=== PATIENT | male | born 1970 | race Caucasian/White ===

== ENCOUNTER 2017-01-27 12:36 | Observation (INO) ==
--- NOTE | 2017-01-27 16:02 | Event Note ---
Date of Encounter: 01/27/17 Time of Encounter: 16:00 1. Chest pain with multiple risk factors Start aspirin, schedule a stress test for the morning Continue monitoring with telemetry, follow troponins, lipid panel in the morning Order an echocardiogram Consider cardiology consult if there are any positive findings on the stress test/nuclear stress test 2. Tobacco abuse, smoking cessation counseling given for 5 minutes. Nicotine patch will be ordered 3. COPD, uses oxygen at night, continue DuoNeb's at night 4. History of asthma, follow up with a form carpenter at [facility] Omeprazole for GI prophylaxis and Lovenox for DVT prophylaxis. The patient will be admitted for observation. Full code. Time spent on this admission 40 minutes. H&P will be completed by MOUSTAPHA Alberto
[2017-01-27] MEDS ORDERED: Ondansetron 4 MG/2 ML VIAL IVP PRN (16:14)
[2017-01-27] MEDS ORDERED: Naloxone 0.4 MG/ML INJ IVP PRN (16:14)
[2017-01-27] MEDS ORDERED: Acetaminophen 325 MG TABLET PO PRN (16:14)
[2017-01-27] MEDS ORDERED: Nitroglycerin 0.4 MG TAB.SUBL SL PRN (16:19)
[2017-01-27] MEDS: Nicotine 21 MG PATCH.TD24 TD SCH (16:35)
--- NOTE | 2017-01-27 16:45 | Internal Med History&Physical ---
Date of Encounter: 01/27/17 Time of Encounter: 16:26 Assessment and Plan (1) Chest wall pain Current visit: Yes Status: Acute Patient has had chronic chest pain off and on for the past 3 months has been followed by cardiology from [facility]. Today he had sudden onset of midsternal chest pain that was not relieved with any rest or oxygen. He was given 3 nitroglycerin which finally did relieve his pain first troponin is 0 we will continue to trend troponin we will get cardiology records from [facility] We will continue with aspirin we will check lipid profile continue a statin and states that he has been on beta bernadette however his blood pressure drops too low she has not been taking it; hold for now He will check echocardiogram Continuous cardiac monitoring NPO after midnight for cardiac stress test in a.m. We will consult cardiology as needed (2) COPD (chronic obstructive pulmonary disease) Current visit: No Status: Chronic 1 we will continue bronchodilators-oxygen Patient can follow up with manager of drilling at [facility] as an outpatient Qualifiers: COPD type: unspecified COPD Qualified Code(s): J44.9 - Chronic obstructive pulmonary disease, unspecified (3) DVT prophylaxis Current visit: Yes Status: [facility] Internal Medicine - H&P: HPI Chief complaint: CP Admitted From: Hospital to Hospital Transfer Plans for Post Hospital Care: Home History of present illness: Mr. Samuels is a 46 year old male with history of COPD he is on oxygen at night tobacco use and asthma. According to the patient he has been experiencing chest pain off and on for the past few months. His primary care physician referred him to see a air turning machine feeder who initiated him on aspirin as well as beta bernadette and another medication he is not sure of the name he thinks it is a blood thinner. He states he is suppose to have a cardiac cathterization Nov 2. This morning he he awoke and began to experience midsternal chest heaviness which radiated to both arms she described as sharp pain and heaviness. Normally his pain is relieved with rest and oxygen however today there was no improvement after rest or oxygen. The pain was aggravated with exertion he had associated symptoms of shortness of breath. He presented to [place] ED for evaluation. Cardiac workup in the ER was unremarkable. He was given ASA nitroglycerine x3 and relieved pain. He is hemodynamically stable. Patient requested to be transferred to [facility] however no beds were available agreed to transfer to [place]. Presently he is pain free and hemodynamically stable EKG with NO ST T wave abnormalities. I reviewed this case with Dr Christie who agrees with plan Past Med Surg Social Fam HX - Past Medical History Medical history: COPD Psychiatric history: no psych history - Past Surgical History Surgical History: appendectomy - Social History Smoking Status: Current every day smoker Smokeless Tobacco Status: No Alcohol use: none Drug use: none - Family History Mother Living Status: Still Living Hx Family Cancer: Yes Father Hx Family Cancer: Yes Internal Medicine - H&P: Meds Albuterol Sulfate [Ventolin Hfa] 1 puff IH Q6H PRN 01/27/17 [History] Fexofenadine HCl 180 mg PO DAILY 01/27/17 [History] Fluticasone Furoate [Arnuity Ellipta] 1 puff IH DAILY 01/27/17 [History] Fluticasone Propionate Nasal [Flonase] 2 spr IH DAILY 01/27/17 [History] Meclizine HCl [Verticalm] 25 mg PO Q8H PRN 01/27/17 [History] Metoprolol XL (24 HR) Succ [Toprol XL] 25 mg PO DAILY 01/27/17 [History] Montelukast [Singulair] 10 mg PO DAILY 01/27/17 [History] Umeclidinium [place] [Incruse Ellipta] 1 puff IH DAILY 01/27/17 [History] 3 Allergy/AdvReac Type Severity Reaction Status Date / Time No Known Allergies Allergy Verified 07/21/15 11:12 All Systems PM: A 10-system review of systems was performed and is negative for pertinent findings except as documented above in the HPI. - Constitutional Constitutional: no chills, no fever(s), no night sweats - EENT Eyes: no change in vision, no discharge, no pain, no photophobia Nose, mouth and throat: no dysphagia, no nasal discharge, no neck pain, no sore throat - Cardiovascular Cardiovascular ROS IM: chest pain, dyspnea - Respiratory Respiratory: no cough, no dyspnea, no wheezing, no excessive phlegm production - Gastrointestinal Gastrointestinal: no abdominal pain, no diarrhea, no hematemesis, no hematochezia, no melena, no nausea, no vomiting - Musculoskeletal Musculoskeletal ROS IM: no numbness, no tingling - Integumentary Integumentary IM: no rash, no unusual bruising - Neurological Neurological ROS: no confusion, no convulsions, no focal weakness, no numbness, no tingling, no tremor(s) - Hematologic/Lymphatic Hematologic/Lymphatic: no easy bruising - Constitutional Vitals: Temp Pulse Resp BP Pulse Ox 98.0 F 65 18 125/77 98 01/27/17 14:17 01/27/17 14:17 01/27/17 14:17 01/27/17 14:17 01/27/17 14:17 General appearance: Present: A&O X 3, answers questions appropriately - Head Head exam: Present: atraumatic, normocephalic - Eye Eye exam: Present: PERRL, conjuntiva pink, sclera anicteric Pupils: Present: PERRL - Neck Neck exam general surgery: Present: supple, trachea midline. Absent: lymphadenopathy - Respiratory Respiratory exam: Present: CTAB. Absent: accessory muscle use, rales, rhonchi, wheezes - Cardiovascular Cardiovascular exam: Present: RRR, +S1, +S2. Absent: diastolic murmur, gallop, rubs, systolic murmur - GI/Abdominal GI/Abdominal exam: Present: normal bowel sounds, soft, no peritoneal signs. Absent: distended, tenderness - Extremities Exam Extremities exam: Present: warm, radial pulses palpable and symmetrical. Absent : calf tenderness, cyanotic, pedal edema - Neurological Exam Neurological exam: Present: CN II-XII intact, oriented X3, no focal deficits. Absent: pronater drift, facial droop, speech deficit - Skin Skin exam: Present: dry, intact Internal Med - H&P Results - Labs Labs: Labs from 01/27 Chemistries sodium 140 potassium 4.1 chloride 107 bicarbonate 24 BUN 10 creatinine 0.93 glucose 1:15 CBC WBC 13.9 hemoglobin 17.4 hematocrit 50.5 platelets 424 - EKG Data EKG shows normal: sinus rhythm
[2017-01-28] MEDS: Nicotine 21 MG PATCH.TD24 TD SCH (09:20)
[2017-01-28] MEDS ORDERED: Regadenoson 0.4 MG/5 ML SYRINGE IVP ONE (09:55)
[2017-01-28] MEDS: (Umeclidinium Bromide [Incruse Ellipta] 1 PUFF) IH SCH (11:31)
[2017-01-28] MEDS: (Fluticasone Furoate [Arnuity Ellipta] 1 PUFF) IH SCH (11:31)
[2017-01-28] MEDS: Pantoprazole 40 MG VIAL IVP SCH (11:32)
[2017-01-28] MEDS: Loratadine 10 MG TABLET PO SCH (11:33)
[2017-01-28] MEDS: Aspirin 81 MG TAB.CHEW PO SCH (11:34)
--- NOTE | 2017-01-28 16:52 | Internal Med Progress Note ---
Date of Encounter: 01/28/17 Time of Encounter: 16:50 - Assessment and plan (1) Chest pain Current Visit: Yes Status: Acute Qualifiers: Chest pain type: chest pain due to myocardial ischemia Ischemic chest pain type: unstable angina pectoris Qualified Code(s): I20.0 - Unstable angina (2) Dyslipidemia Current Visit: Yes Status: Acute (3) COPD (chronic obstructive pulmonary disease) Current Visit: No Status: Chronic Qualifiers: COPD type: unspecified COPD Qualified Code(s): J44.9 - Chronic obstructive pulmonary disease, unspecified (4) DVT prophylaxis Current Visit: Yes Status: Acute - Subjective Interval history: The patient was admitted for chest pain which was relieved with sublingual nitroglycerin.. He underwent a perfusion and stress test this morning. He is chest pain-free now. His stress test showed a large fixed defect. Cardiology is consulted. His cholesterol is still quite high and he is on Lipitor 40 daily at bedtime. He may be a candidate for this idea. We will continue with beta bernadette and aspirin for now. - Constitutional Vitals: Temp Pulse Resp BP Pulse Ox 98 F 70 18 119/70 98 01/28/17 08:00 01/28/17 08:00 01/28/17 08:00 01/28/17 08:00 01/28/17 08:00 General appearance: Present: A&O X 3, answers questions appropriately - Head Head exam: Present: atraumatic, normocephalic - Eye Eye exam: Present: PERRL, conjuntiva pink, sclera anicteric Pupils: Present: PERRL - Neck Neck exam general surgery: Present: supple, trachea midline. Absent: lymphadenopathy - Respiratory Respiratory exam: Present: CTAB. Absent: accessory muscle use, rales, rhonchi, wheezes - Cardiovascular Cardiovascular exam: Present: RRR, +S1, +S2. Absent: diastolic murmur, gallop, rubs, systolic murmur - GI/Abdominal GI/Abdominal exam: Present: normal bowel sounds, soft, no peritoneal signs. Absent: distended, tenderness - Extremities Exam Extremities exam: Present: warm, radial pulses palpable and symmetrical. Absent : calf tenderness, cyanotic, pedal edema - Neurological Exam Neurological exam: Present: CN II-XII intact, oriented X3, no focal deficits. Absent: pronater drift, facial droop, speech deficit - Skin Skin exam: Present: dry, intact Internal Medicine: Result - Impressions Impressions Echocardiogram 01/27/17 16:19 Impressions: LVEF 60%. Normal LV chamber size, wall thickness and function. Normal left ventricular diastolic function. Normal right ventricular structure and function. Unable to estimate RVSP due to lack of TR jet. No significant valvular dysfunction. Left Ventricular Wall Motion: Rest Echo Findings All wall segments showed normal motion. Findings: Study Quality * Technically adequate exam. ECG Findings * Sinus bradycardia. Left Ventricle * LVEF 60%. * Normal LV chamber size, wall thickness and function. * Normal left ventricular diastolic function. Right Ventricle * Normal right ventricular structure and function. Left Atrium * Normal left atrial size. Right Atrium * Normal right atrial size. Aortic Valve * Trileaflet aortic valve with normal function. * No aortic regurgitation. * No aortic stenosis. Mitral Valve * Normal mitral valve structure and function. * No mitral regurgitation. * No mitral stenosis. Tricuspid Valve * Normal tricuspid valve structure and function. * No tricuspid regurgitation. * Unable to estimate RVSP due to lack of TR jet. Pulmonic Valve * Pulmonic valve not well visualized. Aorta * Normally sized aortic root. Pericardium * The pericardium appears normal. IVC * Normal IVC dimensions and inspiratory collapse. Pulmonary Artery * Normal visualized portions of the main pulmonary artery. - VTE Documentation of Mechanical Device: Intermittent pneumatic compression device Consult Discharge Plan - Plan Referrals: Yajaira Mcclure, AUDIOVISUAL TECHNICIAN [Primary Care Provider] -
--- NOTE | 2017-01-28 23:37 | Cardiology Consult Note ---
Date of Encounter: 01/28/17 Time of Encounter: 23:34 Assessment and Plan (1) Unstable angina Current Visit: Yes Status: Acute Progressive crescendo angina associated with increasing dyspnea on exertion. We will start patient on ACS medications aspirin Plavix and IV heparin. The left heart catheter will be planned for further risk stratification despite a unremarkable stress test and preserved ejection fraction Discussion w patient/family: The assessment and plan as outlined above was discussed with the patient and/or family members who expressed understanding and agreement. All questions were answered. Thank you for involving us in the care of your patient. Please call with any questions. History of Present Illness Consult date: 01/28/17 Requesting physician: Desmond Martinez Consult reason: Unstable Angina Chief complaint: chest pain History of present illness: Mr. Samuels is a 46 year old male who presents to the emergency department with increasing crescendo angina. He describes it as retrosternal tightness radiating at times to both upper extremities causing numbness associated with shortness of breath and mild nausea. He states he has been having exertional shortness of breath over the last month which also has been progressive in nature. His EKG is unremarkable as is his stress test showing only a fixed defect in the inferior and inferolateral/apical territories. He has a preserved ejection fraction 60% on echocardiogram with no major valvular abnormalities Past Med Surg Social Fam HX - Past Medical History Medical history: COPD Psychiatric history: no psych history - Past Surgical History Surgical History: appendectomy - Social History Smoking Status: Current every day smoker Smokeless Tobacco Status: No Alcohol use: none Drug use: none - Family History Mother Living Status: Still Living Hx Family Cancer: Yes Father Hx Family Cancer: Yes Medications and Allergies Albuterol Sulfate [Ventolin Hfa] 1 puff IH Q6H PRN 01/27/17 [History] Fexofenadine HCl 180 mg PO DAILY 01/27/17 [History] Fluticasone Furoate [Arnuity Ellipta] 1 puff IH DAILY 01/27/17 [History] Fluticasone Propionate Nasal [Flonase] 2 spr IH DAILY 01/27/17 [History] Meclizine HCl [Verticalm] 25 mg PO Q8H PRN 01/27/17 [History] Metoprolol XL (24 HR) Succ [Toprol XL] 25 mg PO DAILY 01/27/17 [History] Montelukast [Singulair] 10 mg PO DAILY 01/27/17 [History] Umeclidinium [place] [Incruse Ellipta] 1 puff IH DAILY 01/27/17 [History] 3 Allergy/AdvReac Type Severity Reaction Status Date / Time No Known Allergies Allergy Verified 07/21/15 11:12 All Systems Review: A 10-system review of systems was performed and is negative for pertinent findings except as documented above in the HPI. Physical Examination Vital Signs, Last 4 Hours Temp Pulse Resp BP Pulse Ox 01/28/17 21:43 97.9 F 67 22 117/68 96 01/28/17 20:55 64 127/76 General: Conversant, No Apparent Distress HEENT: Atraumatic, Normocephaly, Mucus Membranes Moist Neck: No JVD, Normal carotid pulses Cardiac: Reg Rate and Rhythm, Normal S1 and S2, No Murmur Lungs: Normal Breath Sounds, No Wheeze, Rales, Rhonchi Neuro: Alert and responsive, No focal deficits noted Abdomen: Soft, Non-Tender Skin: No rashes noted on visualized skin Musculoskeletal: No Chest Wall Tenderness Extremities: No Clubbing, No Cyanosis, No Edema, Normal Pulses Consult Discharge Plan - Plan Referrals: Yajaira Mcclure CNP [Primary Care Provider] -
[2017-01-29] MEDS ORDERED: *HR* Heparin 10,000 UNIT/10 ML VIAL ONE (09:48)
[2017-01-29] MEDS ORDERED: Heparin 1,000 UNITS/500 mL NS 500 ML ONE (09:48)
[2017-01-29] MEDS ORDERED: 0.9 % Sodium Chloride 1,000 ML ONE ×2 (09:48→10:21)
[2017-01-29] MEDS ORDERED: Nitroglycerin 1,000 MCG/10 ML VIAL IV ONE (09:48)
[2017-01-29] MEDS: Pantoprazole 40 MG VIAL IVP SCH (10:09)
[2017-01-29] MEDS: Aspirin 81 MG TAB.CHEW PO SCH (10:09)
[2017-01-29] MEDS: Loratadine 10 MG TABLET PO SCH (10:09)
[2017-01-29] MEDS: Nicotine 21 MG PATCH.TD24 TD SCH (10:09)
[2017-01-29] MEDS: (Fluticasone Furoate [Arnuity Ellipta] 1 PUFF) IH SCH (10:09)
[2017-01-29] MEDS: (Umeclidinium Bromide [Incruse Ellipta] 1 PUFF) IH SCH (10:10)
[2017-01-29] MEDS ORDERED: *HR* FentaNYL (PF) 250 MCG/5 ML VIAL ONE (10:21)
[2017-01-29] MEDS ORDERED: *HR* Midazolam HCl 5 MG/5 ML VIAL IVP ONE (10:21)
[2017-01-29] MEDS ORDERED: methylPREDNISolone 125 MG/2 ML VIAL ONE (10:28)
--- NOTE | 2017-01-29 11:26 | Invasive Diagnostic Lab Proc ---
Name: Adam Samuels Date of Study: 01/29/2017 Date: 1970 Ht: 68.9in Medical Record#: [id number] Age: 46 Wt: 239.20lb Gender: Male BSA: 2.23 Order #: [id number] BMI: 35.43 Physicians Procedure Physician: Pallavi Ruiz MD Referring MD: Referring MD: Staff Name Position Time In Srikanth Jackson RN District Sales Coordinator 09:52 AM Stanislaw Chandra RT (R) Monitor 09:52 AM Keya Pina RT (R) Scrub 09:52 AM Indications Indication Unstable Angina Procedures Performed Procedure L HRT ARTERY/VENTRICLE ANGIO Pre-Procedure Checklist Informed consent is complete signed and on chart. H&P is on chart. ID band is on and ID verified with patient. Patient NPO for procedure The procedure was described for the patient and questions were answered. Blood Pressure: 142/85 ECG is on chart. Rhythm: NSR Plan of Care Patient will tolerate the procedure without complications. Adequate level of comfort will be maintained. Hemodynamics will remain stable Patient will recover from procedure without complications. Respiratory function will be maintained. Cardiac rhythm will remain stable. Patient temperature will be maintained. Patient and/or family have verbalized understanding of the procedure. Patient Education Chief Complaint/Reason for Test: Cardiac Cath Developmental Category: Adult (18-64 years) Developmentally Appropriate for Age: Yes Learning Barriers: None Education Needs: Procedure Education Method: Verbal Information Taught: Cardiac Cath Educational Evaluation: Able to repeat information Intravenous Access Time IV Size Location DC'd Fluid/Drip Rate Units RN 10:20 AM 20g 1 1/4" Peripheral-Lock On Arrival Lt Antecubital 0.9NaCl 25 ml/hr Srikanth Jackson RN Allergies shell fish Vital Signs Time BP (mmHg) HR (bpm) O2 Sat. RR (bpm) LOC 10:28 AM 142 / 85 61 97 % 16 5 = Fully awake and oriented or at pre-proc level 10:27 AM / % 4 = Oriented but drowsy 10:42 AM / % 4 = Oriented but drowsy 10:27 AM 142 / 85 % 10:32 AM 132 / 79 59 97 % 24 10:37 AM 128 / 76 67 94 % 23 10:42 AM 132 / 81 77 96 % 12 10:47 AM 136 / 78 64 96 % 23 10:52 AM 128 / 71 58 94 % 20 10:57 AM 134 / 82 76 94 % 23 11:02 AM 127 / 77 75 94 % 19 11:07 AM 121 / 75 67 96 % 17 10:57 AM / % 5 = Fully awake and oriented or at pre-proc level Procedural Medications Time Medication Dose Units Method Given By 10:32 AM Oxygen 2 L/min nasal cannula Srikanth Jackson RN 10:32 AM Benadryl 25 mg Intravenous Srikanth Jackson RN 10:32 AM Solu-medrol 60 mg Intravenous Srikanth Jackson RN 10:32 AM Versed 1 mg Intravenous Srikanth Jackson RN 10:32 AM Fentanyl 50 mcg Intravenous Srikanth Jackson RN 10:46 AM Lidocaine 2% 10 ml Subcutaneous Pallavi Ruiz MD 10:47 AM Versed 0.5 mg Intravenous Srikanth Jackson RN 10:47 AM Fentanyl 25 mcg Intravenous Srikanth Jackson RN ASA Classification: CLASS II- Mild systemic disease (i.e. well-controlled diabetes, hypertension, asthma, cigarette smoking) Burke Score Preprocedure Postprocedure Activity 2- Moves 4 extremities sustained head lift Activity 2- Moves 4 extremities sustained head lift Circulation 2- SBP +/= 20 points of pre-anesthetic level Circulation 2- SBP +/= 20 points of pre-anesthetic level Consciousness 2- Awake and alert oriented x 3 Consciousness 2- Awake and alert oriented x 3 O2 Saturation 2- Able to maintain O2 satruation of 92% on room air O2 Saturation 2- Able to maintain O2 satruation of 92% on room air Respiratory 2- Able to deep breathe and cough well Respiratory 2- Able to deep breathe and cough well Total Score 10 Total Score 10 Contrast Agent: Isovue Diagnostic Contrast: 81 ml Total Contrast: 81 ml Fluoro Dose: 327 mGy Procedure Log Time Note Enter By 09:52 AM Srikanth Jackson RN Position: District Sales Coordinator Time in: 09:52 09:52 AM Stansilaw Chandra RT (R) Position: Monitor Time in: 09:52 09:52 AM Keya Pina RT (R) Position: Scrub Time in: 09:52 2 10:19 AM Pt arrived to supervisor laboratory 2 at 10:19 [email or web address] 10:19 AM Patient charges- Angio tray pack, Navilyst 3mm J, Pulse Oximetry and ACIST tubing and transducer [email or web address] 10:19 AM Case Delayed No [email or web address] 10:21 AM CathStat 10: AM Physician arrived : [email or web address] 10: AM Meet and greet completed [email or web address] 10: AM Sign in performed according to hospital policy. [email or web address] 10: AM Procedure start 10: [email or web address] 10: AM ASA Class CLASS II- Mild systemic disease (i.e. well-controlled diabetes, hypertension, asthma, cigarette smoking) [email or web address] 10: AM Vitals capture started with the following parameters, Patient=Adult, Interval=5 min, Initial Wfrusoxc=591 mmHg, Deflation Rate=5 mmHg, Cuff placed on Right Arm 10: AM Time: Patient comfortable and pain free: Yes [email or web address] 10: AM Time: LOC: 5 = Fully awake and oriented or at pre-proc level [email or web address] 10: AM Clinical Presentation: Unstable angina [email or web address] 10: AM NQDJ=580/85 mmhg 10:31 AM Recorded ECG: HR=60 Condition=Condition 1 10:32 AM Time: 10:32 Oxygen on at 2 L/min per nasal cannula by Srikanth Jackson RN [place] [id number] 10:32 AM Time: 10:32 Benadryl 25 mg Intravenous Given by Srikanth Jackson RN [place] [id number] 10:32 AM HR=59 bpm, WEOH=230/79 mmhg, SpO2=97.0 %, Resp=24 B/min 10:32 AM Time: 10:32 Solu-medrol 60 mg Intravenous Given by Srikanth Jackson RN [email or web address] 10:32 AM Time: 10:32 Versed 1 mg Intravenous Given by Srikanth Jackson RN [place] [address] 10:32 AM Time: 10:32 Fentanyl 50 mcg Intravenous Given by Srikanth Jackson RN [place] [address] 10:33 AM Hair removed from procedure site in procedure lab using clippers. Bilateral groin prepped with Chloraprep by Stanislaw Chandra (R), safety strap applied then patient was draped. Skin intact. [email or web address] 10:35 AM Pressure channel 1 zero failed. 10:35 AM Pressure channel 1 zeroed. 10:37 AM HR=67 bpm, NVCI=917/76 mmhg, SpO2=94.0 %, Resp=23 B/min, Comment=NSR 10:42 AM Time: LOC: 4 = Oriented but drowsy [email or web address] :42 AM Time: 10:27 Patient comfortable and pain free: Yes [email or web address] 10:42 AM HR=77 bpm, MRSD=571/81 mmhg, SpO2=96.0 %, Resp=12 B/min, Comment=NSR 10:44 AM Time out performed according to hospital policy [email or web address] 10:47 AM Time: 10:46 10 ml Lidocaine 2% to right groin Subcutaneous Given by Pallavi Ruiz MD [place] [address] 10:47 AM Time: 10:47 Versed 0.5 mg Intravenous Given by Srikanth Jackson RN [place] [address] 10:47 AM Time: 10:47 Fentanyl 25 mcg Intravenous Given by Srikanth Jackson RN [place] [address] 10:47 AM HR=64 bpm, SJES=895/78 mmhg, SpO2=96.0 %, Resp=23 B/min, Comment=NSR 10:48 AM Micro-Introducer Kit utilized for sheath placement [place] [address] 10:49 AM Bolus angiogram of right Femoral complete: groin shot 5cc contrast injected [email or web address] 10:50 AM Access obtained by percutaneous puncture. 6Fr 10cm Terumo [place] sheath placed in right Femoral artery. [id number] [email or web address] 10:50 AM 0.035 145cm Navilyst 3mmJ wire [id number] [email or web address] 10:50 AM 5Fr FL 4 catheter inserted over the wire [place] [address] 10:51 AM Recorded Pressure: Ao, HR=72, Condition=Condition 1 (Aorta) Ao 125/88/105 10:51 AM LCA angiography performed in multiple views. [email or web address] 10:52 AM HR=58 bpm, SOUG=902/71 mmhg, SpO2=94.0 %, Resp=20 B/min, Comment=NSR 10:52 AM Recorded Pressure: Ao, HR=56, Condition=Condition 1 (Aorta) Ao 98/67/82 10:53 AM Catheter removed [email or web address] 10:54 AM 5Fr FR 4 catheter inserted over the wire [place] [address] 10:54 AM RCA angiography performed in multiple views. [email or web address] 10:55 AM Recorded Pressure: Ao, HR=68, Condition=Condition 1 (Aorta) Ao 124/83/102 10:56 AM Coronary Dominance: Left [email or web address] 10:56 AM Catheter removed [email or web address] 10:57 AM 5Fr Pigtail catheter inserted over the wire DNC [email or web address] 10:57 AM Time: 10:42 Patient comfortable and pain free: Yes [email or web address] 10:57 AM Time: 10:42LOC: 4 = Oriented but drowsy [email or web address] 10:57 AM HR=76 bpm, ZZQR=197/82 mmhg, SpO2=94.0 %, Resp=23 B/min, Comment=NSR 10:58 AM Catheter selectively placed in left ventricle [email or web address] 10:59 AM Recorded Pressure: LV, HR=72, Condition=Condition 1 (Left Ventricle) LV 118/21/23 10:59 AM Bolus angiogram of left Ventricle complete: 10 ml/sec for a total of 30 mls [email or web address] 11:01 AM Recorded Pressure: LV, Ao, HR=74, Condition=Condition 1 (Left Ventricle) LV 109/18/22, (Aorta) Ao 118/31/74 11:01 AM Catheter removed [email or web address] 11:02 AM HR=75 bpm, IWLZ=720/77 mmhg, SpO2=94.0 %, Resp=19 B/min, Comment=NSR 11:04 AM Arterial sheath pulled, Angio-seal closure device used and was Successful [id number] S/N. [email or web address] 11:06 AM Procedure completed at 11:06 [email or web address] 11:06 AM Sign out completed: Radiation Dose 326.76 mGy Fluoro Time: 3.8 Isovue 370 - 200ml contrast 81 ml given by Pallavi Ruiz MD. Complications: NoneCardiac Rehab Consult needed: NoConfirmed administered medications: Yes [email or web address] 11:06 AM Post ECG NSR [email or web address] 11:06 AM Post Blood Pressure 127/77 [email or web address] 11:06 AM 11:06 Post Pulses Bilateral DP & PT 1+ [email or web address] 11:06 AM Information taught Cardiac Cath and Angioseal [email or web address] 11:06 AM Education needs Procedure, Plan of Care, and Disease Process [email or web address] 11:06 AM Learning barriers :Sedated [email or web address] 11:07 AM Education Methods Verbal [email or web address] 11:07 AM Education evaluation Needs further instruction [email or web address] 11:07 AM HR=67 bpm, WMBK=862/75 mmhg, SpO2=96.0 %, Resp=17 B/min, Comment=NSR 11:07 AM Site status No bleeding/hematoma - Rt Groin as reported by Keya Pina RT (R) at 11:07 [email or web address] 11:07 AM Opsite applied [email or web address] 11:08 AM Delay to floor No [email or web address] 11:08 AM Complications: None [email or web address] 11:08 AM Fluoro Time: 3.8 [email or web address] 11:08 AM Isovue 370 - 200ml contrast 81 ml given by Pallavi Ruiz MD. [email or web address] 11:08 AM Radiation Dose 326.76 mGy [email or web address] 11:08 AM Vitals capture stopped. 11:10 AM Report given to warren REYNOLDS Pt taken to E Room #32. 11:10 [email or web address] 11:12 AM Time: 10:57LOC: 5 = Fully awake and oriented or at pre-proc level [email or web address] 11:12 AM Time: 10:57 Patient comfortable and pain free: Yes [email or web address] 11:14 AM Patient out of room: 11:14 [email or web address] Complications Complication None None Hemodynamics Pressures Site Systolic/A Wave Diastolic/V Wave Mean AO 125 88 105 AO 98 67 82 AO 124 83 102 LV 118 21 23 LV 109 18 22 AO 118 31 74 Post Procedure Information Blood Pressure: 127/77 mmHg Rhythm: NSR Post procedural instructions were given Closure Device Time Device Success/Fail 01/29/2017 11:04:00 AM Angio-Seal VIP Successful Site Checks Time Location Status Staff Sheath In? Note 11:07 AM Rt Groin No bleeding/hematoma Keya Pina RT (R) Pulses Time Site Pre-Procedure Post-Procedure Note 01/29/2017 10:23:00 AM Bilateral DP & PT 1+ 11:06:00 AM Bilateral DP & PT 1+ Updated by Stanislaw Chandra RT (R) on 01/29/2017 11:16:19 AM RT Juan electronically signed on 01/29/2017 11:21:56 AM with status of Final
--- NOTE | 2017-01-29 14:15 | Event Note ---
Date of Encounter: 01/29/17 Time of Encounter: 15:13 - Cardiology Event Note LHC completed today showed normal coronaries. Preserved EF. Recommend r/o non- cardiac cause of symptoms. No further cardiac work-up. Please call with questions. Cardiology signing off.
--- NOTE | 2017-01-29 15:36 | Discharge Summary ---
Date of Encounter: 01/29/17 Time of Encounter: 15:33 - Discharge Diagnosis (1) Chest pain Priority: Primary Status: Acute Qualifiers: Chest pain type: chest pain due to myocardial ischemia Ischemic chest pain type: unstable angina pectoris Qualified Code(s): I20.0 - Unstable angina (2) Dyslipidemia Priority: Secondary Status: Acute (3) COPD (chronic obstructive pulmonary disease) Priority: Secondary Status: Chronic Qualifiers: COPD type: unspecified COPD Qualified Code(s): J44.9 - Chronic obstructive pulmonary disease, unspecified (4) DVT prophylaxis Priority: Secondary Status: Acute - Discharge Medications Prescriptions: Lansoprazole [Prevacid] 30 mg PO QAM #30 capsule. Home Medications: Albuterol Sulfate [Ventolin Hfa] 1 puff IH Q6H PRN 01/27/17 [History] Fexofenadine HCl 180 mg PO DAILY 01/27/17 [History] Fluticasone Furoate [Arnuity Ellipta] 1 puff IH DAILY 01/27/17 [History] Fluticasone Propionate Nasal [Flonase] 2 spr IH DAILY 01/27/17 [History] Meclizine HCl [Verticalm] 25 mg PO Q8H PRN 01/27/17 [History] Metoprolol XL (24 HR) Succ [Toprol Xl] 25 mg PO DAILY 01/27/17 [History] Montelukast [Singulair] 10 mg PO DAILY 01/27/17 [History] Umeclidinium [place] [Incruse Ellipta] 1 puff IH DAILY 01/27/17 [History] Aspirin 81 mg PO DAILY tab.chew 01/29/17 [Rx] Lansoprazole [Prevacid] 30 mg PO QAM #30 capsule. 01/29/17 [Rx] Nicotine Patch [Nicoderm] 21 mg TD DAILY patch.td24 01/29/17 [Rx] Allergies/Adverse Reactions: 3 Allergy/AdvReac Type Severity Reaction Status Date / Time No Known Allergies Allergy Verified 07/21/15 11:12 Procedures/tests Complete & Pending: Procedures Performed prior 72 hours Category Date Time Status CL Cardiac Catheterization [CL] Routine Blow Off Worker 01/29/17 09:41 Completed NM cecelia perf SPECT multi [NM] Routine Exams 01/28/17 07:51 Taken EV echocardiogram Routine Y 01/27/17 16:19 Completed SP pharm nuclear stress Routine Y 01/28/17 08:23 Completed Date of admission: 01/27/17 13:55 Primary care physician: Yajaira Mcclure CNP Consults: 01/28/17 16:46 Consult to Cardiology [CONS] Routine Comment: Consulting Provider: Dawit Ocampo Reason for Consult: Abnormal stress test with fixed defect Time Notified: 16:47 Call Completed: No Discharging clinician: Yennifer Nath Anticipated date of discharge: 01/29/17 - Patient Status Disposition: Home, Self-Care Condition: Fair Overall status at discharge: patient is back to baseline - Discharge Instructions Follow Up With: Yajaira Mcclure CNP [Primary Care Provider] - - Diet and Activity Activity: resume usual activities as tolerated Diet: advance to your usual diet Hospital course: Mr. Samuels is a 46 year old male admitted for atypical chest pain. Cardiac enzymes were negative. A stress Myoview was done which showed fixed inferior lateral defect with preserved EF of 60% later confirmed with echocardiogram which shows EF of 60% without any wall motion abnormality or significant valvular abnormality. Cardiac consult was obtained and cardiology decided to proceed with cardiac catheter which showed clean coronaries. Patient has been asked to use PPI to see if it resolves his symptoms. He will be discharged home under care of his family doctor. Time spent discussing smoking cessation with patient: 3 to 10 minutes - Time Spent with Patient Total time spent providing and/or coordinating discharge services: Greater than 30 minutes - Constitutional Vitals: Temp Pulse Resp BP Pulse Ox 98.0 F 68 16 112/68 94 01/29/17 07:29 01/29/17 13:19 01/29/17 07:29 01/29/17 13:19 01/29/17 13:19 General appearance: Present: A&O X 3, answers questions appropriately - Head Head exam: Present: atraumatic, normocephalic - Eye Eye exam: Present: PERRL, conjuntiva pink, sclera anicteric Pupils: Present: PERRL - Neck Neck exam general surgery: Present: supple, trachea midline. Absent: lymphadenopathy - Respiratory Respiratory exam: Present: CTAB. Absent: accessory muscle use, rales, rhonchi, wheezes - Cardiovascular Cardiovascular exam: Present: RRR, +S1, +S2. Absent: diastolic murmur, gallop, rubs, systolic murmur - GI/Abdominal GI/Abdominal exam: Present: normal bowel sounds, soft, no peritoneal signs. Absent: distended, tenderness - Extremities Exam Extremities exam: Present: warm, radial pulses palpable and symmetrical. Absent : calf tenderness, cyanotic, pedal edema - Neurological Exam Neurological exam: Present: CN II-XII intact, oriented X3, no focal deficits. Absent: pronater drift, facial droop, speech deficit - Skin Skin exam: Present: dry, intact - VTE Documentation of Mechanical Device: Intermittent pneumatic compression device
[2017-01-29 15:40] VITALS: BP 120/70
== END 2017-01-29 18:00 | disposition home or self-care (01) ==
LOC: 2NENU
PROVIDERS: ADMIT Internal Medicine; ATTEND Internal Medicine